=== PATIENT | male | born 1995 | race Hispanic/Latino ===

== ENCOUNTER 2023-08-31 22:19 | Emergency (ER) | payer OTHER ==
[~2023-08-31] VITALS: Ht 170.2 cm; Wt 57.2 kg
[2023-08-31 22:43] LABS: SARS-CoV-2, RNA, NAAT NEGATIVE SARS CoV-2 (NEGATIVE)
[2023-08-31 22:47] LABS: INFLUENZA TYPE A Negative For Type A (NEGATIVE); INFLUENZA TYPE B Negative For Type B (NEGATIVE)
[2023-08-31] MEDS: KETOROLAC 15MG/ML VIAL (15MG/ML) IV ONE (23:04)
[2023-08-31] MEDS: PROCHLORPERAZINE 10MG/2ML INJ IV ONE (23:04)
[2023-08-31] MEDS: DiphenhydrAMINE HCL 50 MG/ML VIAL IV ONE (23:04)
[2023-08-31 23:23] LABS: APPEARANCE,URINE CLEAR (CLEAR); BILIRUBIN,URINE NEGATIVE (NEGATIVE); COLOR,URINE LIGHT-YELLOW (YELLOW); GLUCOSE, URINE (UA) NEGATIVE (NEGATIVE); KETONES,URINE NEGATIVE (NEGATIVE); LEUKOCYTE ESTERASE ,URINE NEGATIVE Leu/uL (NEGATIVE); NITRATE,URINE NEGATIVE (NEGATIVE); OCCULT BLOOD,URINE NEGATIVE (NEGATIVE); PH,URINE 7.5 (5.0-8.0); PROTEIN,URINE 10 mg/dL (NEGATIVE); UROBILINOGEN,URINE 0.2 mg/dL (0.2-1.0)
[2023-08-31 23:25] LABS: ADD UA MICROSCOPIC YES
[2023-08-31 23:26] LABS: BACTERIA,URINE None Seen /HPF (None Seen); RBC,URINE 0-1 /HPF (0-1); WBC,URINE 0-1 /HPF (0-1)
[2023-08-31 23:27] LABS: MUCUS,URINE Rare LPF (None Seen)
[2023-09-01 01:09] VITALS: BP 99/55; PULSE 64; RESP 16; O2SAT 98
== END 2023-09-01 01:26 | disposition home or self-care (01) ==
LOC: EDH 22:19
DX: G43.909 Migraine, unspecified, not intractable, without status migrainosus (principal); Z20.822 Contact with and (suspected) exposure to COVID-19
CPT/HCPCS: 99284; 96374; 96375; 87635; 87804 ×2; 81001; J1200; J0780; J1885